=== PATIENT | female | born 1990 | race African-American/Black ===

== ENCOUNTER → 2016-09-07 | Outpatient (CLI) | payer BC ==
[~2016-09-07] MED LIST: CHLO25CA10 PO; FLUO40CA8 PO; PRLSR20 PO
[2016-09-07 14:45] LABS: HEMATOCRIT 43.1 % (37-47); MEAN CELL VOLUME 88.9 fL (80-100); MEAN CORPUSCULAR HEMOGLOBIN 29.1 pg (25-34); MEAN CORPUSCULAR HGB CONC 32.7 g/dl (32-36); MEAN PLATELET VOLUME 10.5 fL (7.4-10.4); PLATELET COUNT 223 K/uL (130-400); RED BLOOD COUNT 4.85 M/uL (4.2-5.4); WHITE BLOOD COUNT 7.42 K/uL (4.8-10.8)
== END | disposition home or self-care (01) ==
LOC: C.LAB1850 13:18
PROVIDERS: ATTEND Physician Assistant
DX: N92.6 Irregular menstruation, unspecified (principal)

== ENCOUNTER → 2016-09-07 | Outpatient (CLI) | payer BC ==
[2016-09-10 01:46] LABS: CHLAMYDIA TRACH RNA*** NOT DETECTED (NOT DETECTED); GC (NEIS GONORRHOEAE)RNA** NOT DETECTED (NOT DETECTED)
== END | disposition home or self-care (01) ==
LOC: C.LABSPEC 16:06
PROVIDERS: ATTEND Physician Assistant
DX: Z11.3 Encounter for screening for infections with a predominantly sexual mode of transmission (principal)

== ENCOUNTER → 2016-09-07 | Outpatient (CLI) | payer BC | END | disposition home or self-care (01) | LOC: C.PAPS 10:18 | PROVIDERS: ATTEND Physician Assistant | DX: Z01.419 Encounter for gynecological examination (general) (routine) without abnormal findings (principal) ==